=== PATIENT | female | born 1985 ===

== ENCOUNTER → 2019-03-27 | Outpatient (CLI) | payer OTHER | END | disposition home or self-care (01) | LOC: PRENATAL 09:55 | DX: O34.41 Maternal care for other abnormalities of cervix, first trimester (principal); O09.211 Supervision of pregnancy with history of pre-term labor, first trimester ==

== ENCOUNTER 2019-03-30 13:04 | Outpatient (CLI) | payer OTHER | END 2019-03-30 13:08 | disposition home or self-care (01) | LOC: LAB 13:04 | DX: Z34.00 Encounter for supervision of normal first pregnancy, unspecified trimester (principal) ==

== ENCOUNTER → 2019-05-01 | Outpatient (CLI) | payer OTHER | END | disposition home or self-care (01) | LOC: PRENATAL 09:00 | DX: O34.42 Maternal care for other abnormalities of cervix, second trimester (principal); O09.512 Supervision of elderly primigravida, second trimester ==

== ENCOUNTER 2019-06-01 09:05 | Outpatient (CLI) | payer OTHER | END 2019-06-01 10:30 | disposition home or self-care (01) | LOC: PRENATAL 09:05 | DX: O09.512 Supervision of elderly primigravida, second trimester (principal); O34.42 Maternal care for other abnormalities of cervix, second trimester; O65.5 Obstructed labor due to abnormality of maternal pelvic organs ==

== ENCOUNTER → 2019-07-16 | Outpatient (CLI) | payer OTHER ==
[~2019-07-16] MED LIST: ASPIR 8181 MG PO; FOLIC ACID0.8 M1 PO; OMEGA-3100 MG
== END | disposition home or self-care (01) ==
LOC: PRENATAL 10:00
DX: O26.842 Uterine size-date discrepancy, second trimester (principal); O09.512 Supervision of elderly primigravida, second trimester

== ENCOUNTER 2019-08-25 17:09 | Inpatient (IN) | payer OTHER ==
[~2019-08-25] VITALS: Ht 154.9 cm; Wt 76.7 kg
[2019-08-26] MEDS ORDERED: FOLIC ACID0.8 M1 PO (08:09)
[2019-08-26] MEDS ORDERED: OMEGA-3100 MG (08:10)
[2019-08-26] MEDS ORDERED: ASPIR 8181 MG PO (08:10)
== END 2019-08-26 18:39 | disposition home or self-care (01) | DRG 832 ==
LOC: LDR 17:09
PROVIDERS: ADMIT Obstetrics & Gynecology
PROC: BY4FZZZ Ultrasonography of Third Trimester, Single Fetus (ICD-10-PCS; principal; 2019-08-25)
PROC: 4A1HXCZ Monitoring of Products of Conception, Cardiac Rate, External Approach (ICD-10-PCS; 2019-08-25)
DX: O26.843 Uterine size-date discrepancy, third trimester (principal); O41.03X0 Oligohydramnios, third trimester, not applicable or unspecified; O32.9XX1 Maternal care for malpresentation of fetus, unspecified, fetus 1; O09.523 Supervision of elderly multigravida, third trimester

== ENCOUNTER 2019-09-18 13:00 | Inpatient (IN) | payer OTHER ==
[~2019-09-18] VITALS: Ht 180.3 cm; Wt 78.5 kg
== END 2019-10-01 18:27 | disposition home or self-care (01) | DRG 807 ==
LOC: OB/GYN 09-27 06:38 → LDR 09-27 06:38 → OB/GYN 09-28 13:47 → LDR 10-01 13:00 → OB/GYN 10-01 13:00
PROVIDERS: ADMIT Obstetrics & Gynecology
PROC: 3E0P7VZ Introduction of Hormone into Female Reproductive, Via Natural or Artificial Opening (ICD-10-PCS; 2019-09-27)
PROC: 3E033VJ Introduction of Other Hormone into Peripheral Vein, Percutaneous Approach (ICD-10-PCS; 2019-09-27)
PROC: 4A1HXCZ Monitoring of Products of Conception, Cardiac Rate, External Approach (ICD-10-PCS; 2019-09-27)
PROC: 10E0XZZ Delivery of Products of Conception, External Approach (ICD-10-PCS; principal; 2019-09-28)
DX: O80 Encounter for full-term uncomplicated delivery (principal); Z37.0 Single live birth; Z3A.39 39 weeks gestation of pregnancy